=== PATIENT | male | born 1995 | race Caucasian/White ===

== ENCOUNTER 2019-07-21 13:00 | Inpatient (IN) | payer OTHER, BC ==
--- NOTE | 2019-07-21 13:33 | ED ---
Psychiatric Complaint - HPI Summary HPI Summary: This pt is a 24 Y/O M presenting to [facility] with a CC of suicidal and homicidal ideations. He states that he has been very depressed recently due to family issues and the feeling that his friends don't want him around. He states that he has not been eating consistently or sleeping consistently. He states that he is afraid that he might hurt someone or himself. He has thought about the possibility of suicide but states that he does not have any real plan. He denies any N/V, fevers, SOB, chills, abdominal pain, sore throat, and headache. He has no alleviating symptoms. He has a PMHx of psychiatric issues. - History Of Current Complaint Chief Complaint: EDMentalHealth Time Seen by Provider: 07/21/19 13:13 Hx Obtained From: Patient Onset/Duration: Sudden Onset, Still Present Timing: Constant Severity Initially: Moderate Severity Currently: Severe Character: Depressed Aggravating Factor(s): Recent Stress - family issues, friendship issues Alleviating Factor(s): Nothing Associated Signs And Symptoms: Positive: Sleep Disturbance, Appetite Change Related History: Positive For: Prior Psychiatric Issues Has Suicidal: Reports: Thoughts. Denies: With A Plan Has Homicidal: Reports: Thoughts Recent Stressor(s): family and friend issues - Allergies/Home Medications Allergies/Adverse Reactions: Allergies Allergy/AdvReac Type Severity Reaction Status Date / Time No Known Allergies Allergy Verified 07/21/19 14:02 Home Medications: Home Medications Sertraline* [Zoloft*] 50 mg PO DAILY 07/21/19 [History Confirmed 07/21/19] PMH/Surg Hx/FS Hx/Imm Hx Previously Healthy: Yes Infectious Disease History: No Infectious Disease History: Denies: Traveled Outside the [place] in Last 30 Days - Family History Known Family History: Negative: Diabetes - Social History Alcohol Use: Occasionally Hx Substance Use: No Substance Use Type: Reports: None Hx Tobacco Use: No Smoking Status (MU): Never Smoked Tobacco Review of Systems Negative: Fever, Chills Negative: Sore Throat Negative: Shortness Of Breath Negative: Abdominal Pain, Vomiting, Nausea Negative: Headache Psychological: Other - POSITIVE: HI and SI Positive: Depressed All Other Systems Reviewed And Are Negative: Yes Physical Exam - Summary Physical Exam Summary: Appearance: The patient is well-nourished in no acute distress and in no acute pain. Skin: The skin is warm and dry and skin color reflects adequate perfusion. HEENT: The head is normocephalic and atraumatic. The pupils are equal and reactive. The conjunctivae are clear and without drainage. Nares are patent and without drainage. Mouth reveals moist mucous membranes and the throat is without erythema and exudate. The external ears are intact. The ear canals are patent and without drainage. The tympanic membranes are intact. Neck: The neck is supple with full range of motion and non-tender. There are no carotid bruits. There is no neck vein distension. Respiratory: Chest is non-tender. Lungs are clear to auscultation and breath sounds are symmetrical and equal. Cardiovascular: Heart is regular rate and rhythm. There is no murmur or rub auscultated. There is no peripheral edema and pulses are symmetrical and equal. Abdomen: The abdomen is soft and non-tender. There are normal bowel sounds heard in all four quadrants and there is no organomegaly palpated. Musculoskeletal: There is no back tenderness noted. Extremities are non-tender with full range of motion. There is good capillary refill. There is no peripheral edema or calf tenderness elicited. Neurological: Patient is alert and oriented to person, place and time. The patient has symmetrical motor strength in all four extremities. Cranial nerves are grossly intact. Deep tendon reflexes are symmetrical and equal in all four extremities. Psychiatric: The patient has an appropriate affect and does not exhibit any anxiety or depression. Triage Information Reviewed: Yes Vital Signs On Initial Exam: Initial Vitals Temp Pulse Resp BP Pulse Ox 99.1 F 80 18 135/110 98 07/21/19 13:04 07/21/19 13:04 07/21/19 13:04 07/21/19 13:04 07/21/19 13:04 Vital Signs Reviewed: Yes Diagnostics - Vital Signs Vital Signs Temp Pulse Resp BP Pulse Ox 07/21/19 13:04 99.1 F 80 18 135/110 98 - Laboratory Result Diagrams: 07/21/19 13:32 07/21/19 13:29 Lab Statement: Any lab studies that have been ordered have been reviewed, and results considered in the medical decision making process. Course/Dx - Course Course Of Treatment: Mr. Cox was medically cleared in the emergency department and is undergoing a mental health evaluation. - Differential Dx/Clinical Impression Provider Diagnosis: Depression Discharge ED - Sign-Out/Discharge Documenting (check all that apply): Sign-Out Patient Signing out patient TO: Kenroycar Alicja Bushland Patient Received Moderate/Deep Sedation with Procedure: No - Discharge Plan Referrals: Kandace Adams MD [Primary Care Provider] - - Attestation Statements Document Initiated by Rocioibe: Yes Documenting Scribe: George Scott Provider For Whom Scribe is Documenting (Include Credential): Carson Negrete MD Scribe Attestation: George Santiago, scribed for Carson Negrete MD on 07/21/19 at 1947. Scribe Documentation Reviewed: Yes Provider Attestation: The documentation as recorded by the George barlow accurately reflects the service I personally performed and the decisions made by , Carson Negrete MD Status of Scribe Document: Viewed
[2019-07-21 13:44] LABS: ABS Basophils 0.1 10^3/ul (0-0.2); ABS Eosinophils 1.4 10^3/ul (0-0.6); ABS Lymphocytes 2.1 10^3/ul (1.0-4.8); ABS Monocytes 0.7 10^3/ul (0-0.8); Eosinophil % 17.4 %; Hematocrit 46 % (42-52); Hemoglobin 16.1 g/dL (14.0-18.0); Lymphocyte % 24.7 %; Mean Corpuscular HGB Conc 35 g/dL (31-36); Mean Corpuscular Hemoglobin 31 pg (27-31); Mean Corpuscular Volume 89 fL (80-94); Mean Platelet Volume 8.6 fL (7.4-10.4); Nucleated Red Blood Cells % 0.1; Platelet Count 307 10^3/uL (150-450); Red Blood Count 5.21 10^6 /uL (4.18-5.48); Red Cell Distribution Width 13 % (10-15); White Blood Count 8.3 10^3/uL (3.5-10.8)
[2019-07-21 13:59] LABS: ALT 19 U/L (7-52); Albumin/Globulin Ratio 2.1 (1-3); Alkaline Phosphatase 63 U/L (34-104); BUN/Creatinine Ratio 12.7 (8-20); Blood Urea Nitrogen 15 mg/dL (6-24); CO2 Carbon Dioxide 28 mmol/L (22-32); Calcium 9.8 mg/dL (8.6-10.3); Chloride 105 mmol/L (101-111); EGFR African American 91.8 (>60); EGFR Non-African American 75.8 (>60); Globulin 2.4 g/dL (2-4); Glucose 101 mg/dL (70-100); Sodium 140 mmol/L (135-145); Total Protein 7.4 g/dL (6.4-8.9)
[2019-07-21 14:01] LABS: Urine Benzodiazepine Screen None Detected (None Detect); Urine Opiates Screen None Detected (None Detect)
[2019-07-21 14:10] LABS: Urine Appearance Clear; Urine Bacteria Absent (Absent); Urine Bilirubin Negative (Negative); Urine Blood 1+ (Negative); Urine Color Yellow; Urine Glucose Negative (Negative); Urine Ketones Negative (Negative); Urine Nitrite Negative (Negative); Urine Protein Negative (Negative); Urine Red Blood Cell Absent (Absent); Urine Urobilinogen Negative (Negative); Urine White Blood Cell Trace(0-5/hpf) (Absent)
--- OUTSIDE RECORDS SUMMARY | 2019-07-21 14:16 | XMS REPORT | Continuity of Care Document ---
:1995 External Reference #:[id number] Author Name Kandace Adams MD Address [address] [place] [id number] Care Team Providers Name Role Phone [facility] Counseling - Counselor Care Team Information [facility] [employer] Care Team Information [employer] [phone] - Mental Health Problems Active Problems Provider Date Mental disorder Kandace Adams MD Onset: 04/22/2019 Social History Type Date Description Comments Sex Unknown ETOH Use Occasionally consumes alcohol Tobacco Use Start: Unknown Patient is a former End: Unknown smoker Recreational Drug Use Current Drug User Marijuana Smoking Status Reviewed: 12/21/18 Patient is a former smoker Exercise Type/Frequency Exercises sporadically 03/14/16 counselled 150min per week ,10k steps per day [facility] Allergies, Adverse Reactions, Alerts Description No Known Drug Allergies Medications Active Medications SIG Qnty Indications Ordering Provider Date Sertraline HCL 1/2 by mouth 30tabs F43.21 Kandace Adams, 06/03/2019 50mg every day for MD Tablets one week then 1 daily Vitamin B-12 take one tablet 30tabs E53.9 Kandace Adams, 03/15/2016 1000mcg by mouth every MD Tablets day with food Vitamin D3 1 by mouth daily E55.9 Kandace Adams, 03/15/2016 1000Unit with dinner with MD Tablets meat fat oil History Medications Ketoconazole apply cream to 15gm B35.4 Kandace Adams MD 12/20/2018 - 2% Cream rash daily for 01/03/2019 up to 2 weeks Immunizations CPT Code Status Date Vaccine Reaction Lot # [id number] Given 04/22/2019 Gardasil-9 (HPV) Nonavalent 2-3 [place] [id number] [address] Given 12/20/2018 Tdap (Adacel) Ages 7 And Above Only [id number] 71581 Given 12/20/2018 Gardasil-9 (HPV) Nonavalent 2-3 [place] [id number] [address] Given 03/06/2017 Gardasil-9 (HPV) Nonavalent 2-3 [place] [id number] [address] Given 06/29/2007 Tdap (Adacel) Ages 7 And Above Only 46999 Given 06/13/2000 IPV / Poliomyelitis Immunization 05105 Given 06/13/2000 MMR Virus Immunization 94095 Given 06/13/2000 DTaP Immunization 7 Yrs & Younger 22378 Given 02/21/2000 Varicella (Chicken Pox) Immunization 27226 Given 07/24/1996 DTaP Immunization 7 Yrs & Younger 76436 Given 02/05/1996 MMR Virus Immunization 21827 Given 1995 Hepatitis B Vac Ped/Adolescent 3 Dose Schedule 55625 Given 1995 Hib Pedvaxhib Vac 3 Dose Schedule 74877 Given 1995 DTaP Immunization 7 Yrs & Younger 76659 Given 1995 IPV / Poliomyelitis Immunization 65672 Given 1995 IPV / Poliomyelitis Immunization 90764 Given 1995 DTaP Immunization 7 Yrs & Younger 79136 Given 1995 Hib Pedvaxhib Vac 3 Dose Schedule 18774 Given 1995 Hepatitis B Vac Ped/Adolescent 3 Dose Schedule 67699 Given 1995 Hepatitis B Vac Ped/Adolescent 3 Dose Schedule 68029 Given 1995 IPV / Poliomyelitis Immunization 65569 Given 1995 DTaP Immunization 7 Yrs & Younger 21885 Given 1995 Hib Pedvaxhib Vac 3 Dose Schedule [id number] Refused 06/03/2019 Flu Vaccine NOS 15924 Refused 12/20/2018 Meningococcal B(Bexsero)protn is not in college/ does otrMembran Vesicle Vccn 2 dose not live in dorm - does sche not need men b 92563 Refused 12/20/2018 Influenza Vac, Quadrivalent, Split, 0.5mL Dosage, [place] Use [address]754 Refused 03/06/2017 Influenza Virus Vaccine,Quadrivalent,Split,Preserv Free, 0.5mL,Im [address] Refused 03/14/2016 Gardasil-9 (HPV) [place]alent 2-[place] [address] Refused 03/14/2016 Influenza Virus Vaccine,Quadrivalent,Split,Preserv Free, 0.5mL,Im Vital Signs Date Vital Result Comment 06/03/2019 10:34am Weight 160.00 lb Heart Rate 74 /min BP Systolic 126 mmHg BP Diastolic 82 mmHg Respiratory Rate 14 /min Height 67.25 inches 5'7.25" BMI (Body Mass Index) 24.9 kg/m2 04/22/2019 4:28pm Weight 162.00 lb Heart Rate 70 /min BP Systolic 126 mmHg BP Diastolic 80 mmHg Respiratory Rate 16 /min Height 67.25 inches 5'7.25" BMI (Body Mass Index) 25.2 kg/m2 Results Test Date Facility Test Result H/L Range Note HIV Combo By 12/20/2018 [facility] [employer] HIV NON REACTIVE Non Reactive 1 [facility] Combo CBC with Auto 12/20/2018 [facility] WBC 6.6 K/uL 4.1-11.0 Diff-fcmg RBC 4.84 M/uL 4.60-6.10 Hemoglobin 14.8 gm/dL 13.5-18.0 Hematocrit 43.0 % 41.0-53.0 MCV 88.8 fL 80.0-97.0 MCH 30.7 pg 27.0-32.0 MCHC 34.5 g/dL 32.0-36.0 RDW 12.6 % 11.5-14.5 PLT Count 275 K/ul 140-400 MPV 8.7 FL 7.1-10.7 Neutrophil 45.7 % 35.0-75.0 Lymphocyte 30.0 % 16.0-52.0 Monocyte 8.5 % 2.0-10.0 Eosinophil 14.4 % High 0.0-5.0 Basophil 1.4 % 0.0-4.0 Abs Neutrophils 3.0 K/uL 2.1-8.0 Abs Lymphocytes 2.0 K/uL 0.8-5.5 Abs Monocytes 0.6 K/uL 0.1-1.0 Abs Eosinophils 1.0 K/uL High 0.0-0.5 Abs Basophils 0.1 K/uL 0.0-0.3 Comprehensive Met Panel-[facility] 12/20/2018 [facility] Sodium 143 mmol/L 135- 146 2 Potassium 4.5 mmol/L 3.5-5.2 Chloride# 107 mmol/L 97-110 3 Carbon Dioxide 28 mmol/L 24-34 Glucose 108 mg/dL High 70-105 BUN 16 mg/dL 6-26 Creatinine 1.0 mg/dL 0.5-1.4 Calcium 10.0 mg/dL 8.5-10.2 Total Protein 6.7 g/dL 6.0-8.0 Albumin 4.7 g/dL 3.6-4.9 Globulin 2.0 g/dL 2.0-3.5 A/G Ratio 2.4 Ratio High 1.0-2.2 Total Bilirubin 0.3 mg/dL 0.1-1.3 Alkaline Phosphatase 62 U/L 24-140 Alt 29 U/L 3-42 Ast 25 U/L 8-42 Anion Gap 8 mmol/L 5-15 4 Luisana Egfr >60 >60 5 Non Luisana Egfr >60 >60 6 Laboratory test finding 12/20/2018 [facility] Gamma gt 54 U/L (15-95) 7 1 anytime now 2 Updated reference range on new analyzer -2016 3 Updated reference range on new analyzer 4 Updated Reference Range 5 Concerning GFR Guidelines for Americans: Normal function or mild renal disease, if clinically at risk: >/= 60 mL/min Moderately decreased: 30-59 Severely decreased: 15-29 Renal failure: <15 6 Concerning GFR Guidelines: Normal function or mild renal disease, if clinically at risk: >/= 60 mL/min Moderately decreased: 30-59 Severely decreased: 15-29 Renal failure: <15 Glomerular Filtration Rate (GFR) is estimated based on the MDRD equation, which assumes a steady state for creatinine as recommended by the National Kidney Disease Education Program in conjunction with the National Institutes of Health and the National Kidney Foundation. Clinical conditions in which it may be necessary to measure GFR by using clearance methods include extremes of age and body size, severe malnutrition or obesity, diseases of skeletal muscle, paraplegia or quadriplegia, vegetarian diet, rapidly changing kidney function, and calculation of the dose of potentially toxic drugs that are excreted by the kidneys. 7 Unless otherwise specified, testing performed by [facility] [address] [place] [address] Procedures Date Code Description Status 06/03/2019 81089 Brief Emotional/Behav Assessment W/ Scoring Doc Per Completed Standard Inst 01/18/2019 37823 Brief Emotional/Behav Assessment W/ Scoring Doc Per Completed Standard Inst Medical Devices Description No Information Available Encounters Type Date Location Provider Dx Diagnosis Office Visit 04/22/2019 [facility] Kandace Adams, F43.21 Adjustment disorder 4:15p MD with depressed mood Z23 Encounter for immunization F10.288 Alcohol dependence with other alcohol-induced disorder F12.29 Cannabis dependence with unsp cannabis-induced disorder F17.211 Nicotine dependence, cigarettes, in remission Z81.8 Family history of other mental and behavioral disorders Z68.25 Body mass index (BMI) 25.0-25.9, adult Office Visit 01/18/2019 2:45p [facility] Kandace Adams MD F43.21 Adjustment disorder with depressed mood G47.9 Sleep disorder, unspecified F10.288 Alcohol dependence with other alcohol-induced disorder F12.29 Cannabis dependence with unsp cannabis-induced disorder F17.211 Nicotine dependence, cigarettes, in remission Z68.26 Body mass index (BMI) 26.0-26.9, adult Office Visit 12/20/2018 9:00a [facility] Kandace Adams MD Z00.01 Encounter for general adult medical exam w abnormal findings Z23 Encounter for immunization F43.21 Adjustment disorder with depressed mood G47.9 Sleep disorder, unspecified Z11.4 Encounter for screening for human immunodeficiency virus B35.4 Tinea corporis F12.29 Cannabis dependence with unsp cannabis-induced disorder F17.211 Nicotine dependence, cigarettes, in remission F10.288 Alcohol dependence with other alcohol-induced disorder Assessments Date Code Description Provider 06/03/2019 F43.21 Adjustment disorder with depressed mood Kandace Adams MD 06/03/2019 F10.288 Alcohol dependence with other alcohol-induced Kandace Adams MD disorder 06/03/2019 F12.29 Cannabis dependence with unspecified Kandace Adams MD cannabis-induced disord 06/03/2019 F17.211 Nicotine dependence, cigarettes, in remission Kandace Adams MD 04/22/2019 F43.21 Adjustment disorder with depressed mood Kandace Adams MD 04/22/2019 Z23 Encounter for immunization Kandace Adams MD 04/22/2019 F10.288 Alcohol dependence with other alcohol-induced Kandace Adams MD disorder 04/22/2019 F12.29 Cannabis dependence with unspecified Kandace Adams MD cannabis-induced disord 04/22/2019 F17.211 Nicotine dependence, cigarettes, in remission Kandace Adams MD 04/22/2019 Z81.8 Family history of other mental and behavioral Kandace Adams MD disorders 04/22/2019 Z68.25 Body mass index (BMI) 25.0-25.9, adult Kandace Adams MD 01/18/2019 F43.21 Adjustment disorder with depressed mood Kandace Adams MD 01/18/2019 G47.9 Sleep disorder, unspecified Kandace Adams MD 01/18/2019 F10.288 Alcohol dependence with other alcohol-induced Kandace Adams MD disorder 01/18/2019 F12.29 Cannabis dependence with unspecified Kandace Adams MD cannabis-induced disord 01/18/2019 F17.211 Nicotine dependence, cigarettes, in remission Kandace Adams MD 01/18/2019 Z68.26 Body mass index (BMI) 26.0-26.9, adult Kandace Adams MD 12/20/2018 F10.288 Alcohol dependence with other alcohol-induced Kandace Adams MD disorder 12/20/2018 Z00.01 Encounter for general adult medical Kandace Adams MD examination with abnorma 12/20/2018 Z11.4 Encounter for screening for human Kandace Adams MD immunodeficiency virus [HIV] 12/20/2018 Z23 Encounter for immunization Kandace Adams MD 12/20/2018 F43.21 Adjustment disorder with depressed mood Kandace Adams MD 12/20/2018 G47.9 Sleep disorder, unspecified Kandace Adams MD 12/20/2018 Z11.4 Encounter for screening for human Kandace Adams MD immunodeficiency virus [Hi 12/20/2018 B35.4 Tinea corporis Kandace Adams MD 12/20/2018 F12.29 Cannabis dependence with unspecified Kandace Aadms MD cannabis-induced disord 12/20/2018 F17.211 Nicotine dependence, cigarettes, in remission Kandace Adams MD 12/20/2018 F10.288 Alcohol dependence with other alcohol-induced Kandace Adams MD disorder 12/20/2018 F10.288 Alcohol dependence with other alcohol-induced Schedule, Laboratory disorder 12/20/2018 Z11.4 Encounter for screening for human Schedule, Laboratory immunodeficiency virus 12/20/2018 Z11.4 Encounter for screening for human [facility] immunodeficiency virus 12/20/2018 F10.288 Alcohol dependence with other alcohol-induced [facility] disorder Plan of Treatment Future Appointment(s):07/03/2019 1:00 pm - Kandace Adams MD at [facility]2018 - Kandace Adams MDF43.21 Adjustment disorder with depressed moodNew Medication:Sertraline HCL 50 mg - 1/2 by mouth every day for one week then 1 dailyComments:he is working, trying to figure out what he wants to do in life; sleep issues , if addresses may help mood improvehe needs to return to counselling as he did better when in counselling. he will see if he can do telephone counselling. phq9 = 9 better, wants to try meds. recommend attention to healthy lifestyle, diet, exercise, hydration, routine sleep and engage in activities discussedif sxs worsen, interfere with ability to deal with responsibilities, then seek evaluation and additional treatment is recommended Consider: buspirone, bupropion, escitalopram, sertraline start sertraline 25mg daily for one week, then 50mg daily cautioned side effects, wtach for stomach , ED, call for concerns. I'm uncertain about interactions with marijuana , vaping, alcohol given your use, cautioned sedation. Let me know if you get mood changes you don't feel are appropriate, rare risks for increased suicidal thoughts.Follow up:next visit in 25 to 35 days, fu adj disorder, phq9 , new medsF10.288 Alcohol dependence with other alcohol-induced disorderComments: alcohol use great job with cutting back!sleep issues discussed, let me know if needs more [id number] Cannabis dependence with unspecified cannabis- induced disordComments:Cautioned the moth exterminator risks of use Marijuana moth exterminator use for depression, anxiety , muscle weakness, cardiomyopathy, and other effects. Recommend complete cessation. recommend to address with counsellor.F17.211 Nicotine dependence, cigarettes, in remissionComments:great job not smoking cigaretteshe will continue to taper off the vaping. Functional Status Description No Information Available Mental Status Description No Information Available Referrals Refer to Reason for Referral Status Appt Date [facility] 23 yo with mood and sleep issues, Closed 01/16 Clinic see notes. Cognitive and behavioral counselling for sleep would be helpful as well as addressing mood i called and spoke with patient he said he did not schedule an appt yet 3/5am i called and spoke with partient and he gave me the time and date of appt 15am [address] [id number] [phone]
[2019-07-21 14:19] LABS: Acetaminophen < 15 mcg/mL; Alcohol < 10 mg/dL (<10); Salicylate < 2.50 mg/dL (<30)
[2019-07-21 14:35] LABS: Anion Gap 7 mmol/L (2-11); Potassium 4.4 mmol/L (3.5-5.0); TSH (Thyroid Stimulating Horm) 1.58 mcIU/mL (0.34-5.60)
[2019-07-21 14:40] LABS: AST 21 U/L (13-39)
--- NOTE | 2019-07-21 20:51 | ED ---
Progress - Progress Note Progress Note: 24-year-old male presents with suicidal ideation and setting of substance use. Signed out pending mental health evaluation - Consult/PCP Time Called: 18:41 Course/Dx - Course Course Of Treatment: Mr. Cox was medically cleared in the emergency department and is undergoing a mental health evaluation. - Diagnoses Provider Diagnoses: Depression, Substance induced mood disorder - Provider Notifications Discussed Care Of Patient With: June Caicedo Time Discussed With Above Provider: 20:00 Instructed by Provider To: Admit As Inpatient Discharge ED - Sign-Out/Discharge Documenting (check all that apply): Patient Departure Patient Received Moderate/Deep Sedation with Procedure: No - Discharge Plan Condition: Stable Disposition: ADMITTED TO [facility] Referrals: Kandace Adams MD [Primary Care Provider] - - Billing Disposition and Condition Condition: STABLE Disposition: Admitted to [facility]
[2019-07-21] MEDS ORDERED: Al Hydrox/Mg Hydrox/Simet LIQ* 30 ML UDC PO PRN (21:42)
[2019-07-21] MEDS ORDERED: Acetaminophen TAB* 325 MG PO PRN (21:42)
[2019-07-22 06:40] LABS: HDL Cholesterol 52.9 mg/dL
[2019-07-22] MEDS ORDERED: Sertraline* 50 MG TAB PO SCH (09:00)
[2019-07-22] MEDS: Multivitamins/Minerals TAB PO SCH (10:20)
[2019-07-22] MEDS ORDERED: Sertraline* 50 MG TAB PO ONE (12:03)
--- NOTE | 2019-07-22 18:16 | HP ---
HISTORY AND PHYSICAL: DATE OF ADMISSION: 07/21/19 SUPERVISING PSYCHIATRIST: Dr. Matias Angelo.* (DICTATED BY ADDIE CABALLERO NP) JUSTIFICATION FOR ADMISSION: The patient presented to the emergency department with suicidal ideation and plans to jump off a bridge into traffic and also endorses passive wish. The patient merits hospitalization for immediate safety and stabilization. CHIEF COMPLAINT: "I was scared I was going to hurt myself." HISTORY OF PRESENT ILLNESS: Malick is a 24-year-old white male, single, never , without children, domiciled, employed. The patient reports worsening depressed mood for the past month. About that time, he went to his primary care provider and started sertraline. He states he often forgets to take this, but has moments of feeling better. He endorses depressed mood consistently, frustration, irritability. He reports feeling hopeless and helpless. He states he has intrusive thoughts of suicidal ideation. He reports brief periods of impulsive spending and decreased concentration. He denies change in appetite. He has a history of cutting in high school. Denies self-injurious behavior since then. He denies obsessions or compulsions. He reports mild body image dislike. Denies eating disorder behaviors. The patient reports that he has tried to go to therapy, but has difficulty making appointments because of long work days. He states he works with his father and that they rarely communicate beyond superficial conversation. He reports that his parents is a stressor in that this was unexpected. He also states that his mother was recently diagnosed with bipolar disorder. He states he has a tense relationship with his father. He denies a history of suicide attempts. The patient also reports that he is unsure about sexuality, but is unable to talk about this with anyone, especially in his family. He declines offer of testing for STIs. PAST PSYCHIATRIC HISTORY: The patient saw a therapist that he does not remember , he saw one in [place] and has been seen at [facility], last being in February. He denies prior psychiatric medication trials. TRAUMA/ABUSE HISTORY: Three years ago, his friend, Michel overdosed on heroin. His father was running in the [employer] during the bombing and they were all staying there. He denies a history of abuse. PAST MEDICAL HISTORY: Concussion x2 while playing soccer in high school. Sutures in his chin at 9 years old and an arm fracture at 12 years old. PAST SURGICAL HISTORY: None. CURRENT MEDICATIONS: Sertraline 50 mg p.o. at bedtime. ALLERGIES: No known allergies. Height 5 feet 9 inches, weight 165 pounds. FAMILY PSYCHIATRIC HISTORY: Mom recently diagnosed with bipolar disorder. SOCIAL HISTORY: The patient graduated high school from [employer]. He states that he went to [employer] on and off for 3 years and majored in Tern engineering, but was unable to complete a degree. 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 He identifies that he drinks "a lot of coffee every day." He denies any legal or history. He reports liking been involved in kickITCing for exercise when time allows. SUBSTANCE USE HISTORY: The patient reports trying marijuana at age 16 and then at age 18 he started using it more frequently. He reports smoking daily 1 gram or 2. He reports occasional cocaine use, but rare, last starting when he was 20 and last use being on Monday. He reports trying mushrooms ones. Alcohol use started at age 18. He reports this is primarily social. He binge drinks on weekends and has a beer or 2 after work. His last alcohol was on Monday. REVIEW OF SYSTEMS: Constitutional: Negative. No fever, chills, or fatigue. ENT: Negative. Cardiovascular: Negative. Denies chest pain or palpitations. Respiratory: Negative. Denies shortness of breath or cough. Genitourinary: Negative. Musculoskeletal: Negative. Neurological: Negative. PHYSICAL EXAMINATION GENERAL: The patient is well appearing and well nourished. VITAL SIGNS: T 97.7, P 69, RR 14, O2 sat 100%, BP 131/87. HEENT: Head is normocephalic and atraumatic. Pupils are equal and reactive. Conjunctivae are clear without drainage. Nares are patent without drainage. Mouth reveals moist mucous membranes and throat is without erythema and exudate. External ears are intact. Ear canals are patent and without drainage. Tympanic membranes intact. NECK: Supple with full ROM, nontender. RESPIRATORY: Chest is nontender. Lung sounds clear to auscultation. Breath sounds symmetrical and equal. CARDIOVASCULAR: Heart RRR. No peripheral edema. Pulses are symmetrical and equal in both upper and lower extremities. ABDOMEN: Soft and nontender. Bowel sounds x4. MUSCULOSKELETAL: Normal strength. ROM intact. Good capillary refill. NEUROLOGICAL: Normal sensory and motor intact. Cerebellar function intact. Cranial nerves are grossly intact. SKIN: Warm, dry. Color reflects adequate perfusion. DIAGNOSTIC STUDIES/LAB DATA: CBC grossly unremarkable. Chemistry within normal limits. Hemoglobin A1c 5.6. Lipid panel within normal limits. TSH normal at 1.58. Urinalysis; 1+ blood, micro negative. Toxicology negative for salicylates, acetaminophen, or alcohol. Urine drug screen is positive for cocaine and cannabinoids. MENTAL STATUS EXAM: The patient is a 24-year-old white male who appears stated age. He has long dark hair, pulled back into a ponytail and has dark framed spectacles. He sits with erect posture and is cooperative with interview. He appears to be a good historian. He answers questions slowly. The patient is alert and oriented x3. Eye contact is good. Speech is soft, articulate, and spontaneous. Concentration is good. Memory 3/3. Mood is dysphoric with full range of affect. No abnormal psychomotor activity noted. Thought process is circumstantial, logical and coherent. Thought content is positive for SI and passive wish. He denies HI or . He denies auditory or visual hallucinations. Insight and judgment are good in that he was willing to be hospitalized on a voluntary basis. Fund of knowledge is adequate. He appears to have average intellect by virtue of vocabulary and educational attainment. DIAGNOSES: 1. Major depressive disorder, moderate, severe, without psychotic features. 2. Unspecified anxiety disorder. 3. Rule out substance-induced mood disorder. 4. Cannabis use disorder. 5. Cocaine use disorder. ASSESSMENT: Malick is a 24-year-old white male with no prior psychiatric hospitalizations known, who presented to the ED due to thoughts of suicide and a plan to jump into traffic. He reports onset of depressed mood for quite some time, worsened in the past month. He went to his primary care provider and started sertraline 50 mg about 1 month ago. He states he has been inconsistently taking this. He reports poor communication with his dad and parents with mom newly diagnosed with bipolar disorder. He reports smoking cannabis daily and occasionally using cocaine and alcohol. PLAN: The patient is admitted to adult behavioral services unit on voluntary status. Code status is full. He is placed on 15-minute checks for his safety. He is encouraged to participate in supportive milieu, individual sessions with staff, and psychoeducational groups. We will obtain an MMPI for diagnostic clarification. The patient agreed to increase sertraline and I will add clonidine p.r.n. for anxiety. Estimated length of stay is 5 to 7 days. Discharge planning will include family and outpatient providers. ADDIE CABALLERO, SANTIAG[place] [id number]/CPS #: [id number] JM
[2019-07-22] MEDS: cloNIDine TAB* 0.1 MG PO SCH (20:24)
[2019-07-23 08:18] VITALS: BP 125/71
[2019-07-23] MEDS: Multivitamins/Minerals TAB PO SCH (08:52)
[2019-07-23] MEDS: cloNIDine TAB* 0.1 MG PO SCH (08:52)
[2019-07-23] MEDS: Sertraline* 50 MG TAB PO SCH (08:52)
[2019-07-23] MEDS ORDERED: cloNIDine TAB* 0.1 MG PO PRN (11:54)
--- NOTE | 2019-07-23 11:56 | PN ---
Subjective - Subjective Date of Service: 07/23/19 Service Type: 18889 Hosp care 15 min low complexity Subjective: Patient reports improved anxiety. He reports benefitting from family members reaching out to him in support. He states he was especially surprised by his father doing so. They discussed potential job opportunities for Sravan so that they aren't working so closely. Sravan states he is benefitting from programming , as well. He was given a KWAKU packet and encouraged to use this to evaluate his substance use history. He agrees to discharge recommendation to have a CD evaluation after MH intake at [facility] [place]. Objective - General Observations Appearance: Well Groomed Stature: WNL Posture: WNL Eye Contact: Average Behavior/Activity: WNL - Interaction Observations Attitude Towards Examiner: Cooperative Stated Mood: Euthymic Affect: Full Speech Pattern/Tone: Clear, Appropriate, Normal Volume Thought Process: Coherent, Goal Directed Perception: WNL Thought Content: WNL Hallucination Type: None Delusion Type: None - Cognitive Function Orientation: A&O x 4 Level of Consciousness: Alert Cognition: WNL Estimated Intelligence: Normal Insight: WNL Judgment Within Normal Limits: Yes - Medication Compliance Cooperative with Inpatient Medication Regimen: Yes - Group Participation Participates in Group Activities: Yes Assessment - Assessment Merits Inpatient Hospitalization: For Immediate Safety, For Stabilization Inpatient DSM-V Dx: F33.1 Clinical Impression: First psychiatric hospitalization for 24yo swm without children, domiciled, employed, who presented to ED due to thoughts of suicide and a plan to jump from a bridge into traffic. He reports onset of depressed mood for quite some time, worsened approx a month ago. He went to his PCP and started sertraline 50mg one month ago and has been inconsistently taking this. He reports stressors of his parents and mother was recently diagnosed with bipolar d/o. He reports smoking cannabis daily, frequent alcohol use and occasionally cocaine use. He merits hospitalization for immediate safety and stabilization. Plan - Plan Treatment Plan: Name: CORRINA MELISSA Birthdate: 1995 [id number] continue acute intensive psychiatric treatment. may decrease to q30min obs and allow staff pass and computer use per RN discretion. change clonidine to prn dosing. continue other medications, as ordered. patient to complete KWAKU packet. discharge tentative 07/24/19, include family and outpatient providers. Continued Medication Management: Start Medication Medications: Current Medications Acetaminophen (Tylenol Tab*) 650 mg PO Q4H PRN PRN Reason: PAIN; OR TEMP >101 Al Hydrox/Mg Hydrox/Simethicone (Maalox Plus*) 30 ml PO Q4H PRN PRN Reason: INDIGESTION Clonidine HCl (Catapres Tab*) 0.1 mg PO BID [facility] Last Admin: 07/23/19 08:52 Dose: 0.1 mg Multivitamins/Minerals (Theragran/Minerals Tab*) 1 tab PO DAILY [facility] Last Admin: 07/23/19 08:52 Dose: 1 tab Sertraline HCl (Zoloft*) 100 mg PO DAILY [facility] Last Admin: 07/23/19 08:52 Dose: 100 mg - Discharge Plan Discharge Plan: Inpatient Hospitalization
[2019-07-24] MEDS: Multivitamins/Minerals TAB PO SCH (08:36)
[2019-07-24] MEDS: Sertraline* 50 MG TAB PO SCH (08:36)
--- NOTE | 2019-07-24 14:01 | DCNOTE ---
Subjective - Subjective Service Types: 09050 Hosp DC Day Mgmt simple under 30 min Discharge Date: 07/24/19 Subjective: Patient presents as euthymic with bright affect. He has been interactive and participatory on unit. He reports readiness for discharge and is agreeable to DC plan. He denies SI or passive wish. Objective - General Observations Appearance: Well Groomed Stature: WNL Posture: WNL Eye Contact: Average Behavior/Activity: WNL - Interaction Observations Attitude Towards Examiner: Cooperative Stated Mood: Euthymic Affect: Bright Speech Pattern/Tone: Clear, Appropriate, Normal Volume Thought Process: Coherent, Goal Directed Perception: WNL Thought Content: WNL Hallucination Type: None Delusion Type: None - Cognitive Function Orientation: A&O x 4 Level of Consciousness: Alert Cognition: WNL Estimated Intelligence: Normal Insight: WNL Judgment Within Normal Limits: Yes - Medication Compliance Cooperative with Inpatient Medication Regimen: Yes - Group Participation Participates in Group Activities: Yes DC Assessment - Assessment Clinical Impression: First psychiatric hospitalization for 24yo swm without children, domiciled, employed, who presented to ED due to thoughts of suicide and a plan to jump from a bridge into traffic. He reports onset of depressed mood for quite some time, worsened approx a month ago. He went to his PCP and started sertraline 50mg one month ago and has been inconsistently taking this. He reports stressors of his parents and mother was recently diagnosed with bipolar d/o. He reports smoking cannabis daily, frequent alcohol use and occasionally cocaine use. He has tolerated medication changes and reports improvement in mood and anxiety. He has stabilized in this structured setting and denies SI or passive wish. Merits Inpatient Hospitalization: No Clear for Discharge: Adequate Clinical Respons, Acceptable Safety Profile Inpatient DSM-V Dx: F33.1 Discharge Planning - Discharge Planning Discharge Plan: Outpatient Follow Up Outpatient Program: [facility] [place] Recommendations for Continuing Care: Medication Management, Psychotherapy, Substance Abuse Counseling, Primary Care Followup Medications: Current Medications Clonidine HCl (Catapres Tab*) 0.1 mg PO BID PRN PRN Reason: ANXIETY Sertraline HCl (Zoloft*) 100 mg PO DAILY [facility] Last Admin: 07/24/19 08:36 Dose: 100 mg Discharge Planning: Prescriptions provided for discharge [x] Yes [] No Follow up care details as per social work arrangements: [facility] [place] PCP- [facility] Patient response to discharge plan: [x] eager for discharge [x] agreeable with discharge plan [] ambivalent about discharge [] disagrees with discharge today
--- NOTE | 2019-07-25 22:53 | DS ---
CC: [facility]; Dr. Kandace Adams * DISCHARGE SUMMARY: DATE OF ADMISSION: 07/21/19 DATE OF DISCHARGE: 07/24/19 SUPERVISING PSYCHIATRIST: Dr. Matias Angelo.* (DICTATED BY ADDIE CABALLERO NP) DISCHARGE DIAGNOSES: Major depressive disorder, recurrent, mild; unspecified anxiety disorder; cannabis use disorder; rule out bipolar disorder. CONDITION AT THE TIME OF DISCHARGE: Improved. The patient presents with euthymic with bright affect. He has been interactive and participatory on the unit. He denies suicidal ideation. He denies passive wish. He reports readiness for discharge and is agreeable to discharge plan. The patient is discharged to home. MENTAL STATUS EXAMINATION: Malick is well groomed with erect stature and posture. He has good eye contact and his behavior is within normal limits. He is cooperative, answers questions fully. He is euthymic with bright affect. His speech is clear with appropriate normal volume. His thought process is coherent and goal directed. There are no perceptual disturbances noted. Thought content is negative for suicidal ideation, passive wish. He denies self-harm, HI, or . He is alert and oriented x3. He has good concentration and memory 3/3. Insight and judgment are good. Estimated intelligence is normal. Fund of knowledge is excellent. INSTRUCTIONS GIVEN TO THE PATIENT: A. Medications: 1. Clonidine 0.1 mg p.o. b.i.d. p.r.n. anxiety. 2. Sertraline 100 mg p.o. daily. B. Diet: Regular. C. Activity: Ambulation as tolerated. Tobacco cessation is not applicable. There are no pending labs or diagnostic studies. D. Followup care: [facility] and chemical dependency evaluation. E. Substance Use: As above, at [facility] [place] and there is not an FDA medication approval for cannabis use disorder. HOSPITAL COURSE: Part A. Reason for admission: The patient presented to the emergency department with suicidal ideation and plans to jump off a bridge into traffic and also endorses passive wish. Chief Complaint: "I was scared I was going to hurt myself." HPI: Malick is a 24-year-old white male, who is single, never , without children, domiciled, employed. The patient reports worsening depressed mood for the past month. About that time, he went to his primary care provider and started sertraline. He states he often forgets to take this, but has moments of feeling better. He endorses depressed mood consistently, frustration , and irritability. He reports feeling hopeless and helpless. He states he has intrusive thoughts of suicide. He reports brief periods of impulsive spending and decreased concentration. He denies change in appetite. He has a history of cutting in high school. He denies self-injurious behavior since then. He denies obsessions or compulsions. He reports mild body image dislike. He denies eating disorder behaviors. The patient reports that he has tried to go to therapy, but has difficulty making appointments because of long work days. He states he works with his father and that they rarely communicate beyond superficial conversation. He reports his parents as a stressor and that this was unexpected. He also states that his mother was recently diagnosed with bipolar disorder. He states he has a tense relationship with his father. He denies a history of suicide attempts. The patient also reports he is unsure about sexuality, but is unable to talk about this with anyone, especially in his family. He declines offer of testing for STIs. Part B: Psychiatric treatment rendered: The patient was admitted to the adult behavioral services unit on voluntary status. Code status was full. He was placed on 15-minute checks for safety. Laboratory Data: CBC grossly unremarkable. Chemistry is within normal limits. Hemoglobin A1c is 5.6. Lipid panel is within normal limits. TSH is normal at 1.58. Urinalysis: + blood, micro negative. Toxicology negative for salicylates, acetaminophen, or alcohol. Urine drug screen was positive for cocaine and cannabinoids. The patient agreed to increase sertraline and we trailed clonidine for anxiety. He reported improvement in anxiety and his blood pressure was initially elevated as high as 143/97. On the day prior to discharge, it was within normal limits at 125/71. The patient was drawn an MMPI for diagnostic clarification. This is yet to be scored by our psychologist. The patient was interactive with staff and peers. He attended programming and reported benefiting from the groups. He reported dry mouth, otherwise no untoward effects in the change in sertraline. He was decreased to every 30 minutes observation and allowed staff pass. Day prior to discharge, patient reported desire to remain hospitalized in order to fully benefit from programming. The following day, the patient was euthymic with bright affect and denied barriers to discharge. The patient also completed a [facility] packet, so that he could take a look at his substance abuse and identify problem areas. He received a health home referral for case management. He was also given information for LGBT resources in [place]. The patient's family visited and phoned while he was on the unit. He reported that these actions of support were comforting to him and he was surprised at support received from his father. He states that he and his father have talked about working in separate locations so as to improve the relationship. The patient was safe on all checks. He denied suicidal ideation. Due to obligation to treat in least restrictive setting, discharge was agreed upon by treatment team. The patient was discharged by nursing staff. ADDIE CABALLERO NP [id number]/CPS #: [id number] JM
== END 2019-07-24 14:20 | disposition home or self-care (01) | DRG 751 ==
LOC: ED 13:00 → BSU 20:04
PROVIDERS: ADMIT Psychiatry & Neurology Psychiatry; ATTEND Psychiatry & Neurology Psychiatry
DX: F33.2 Major depressive disorder, recurrent severe without psychotic features (principal); R45.851 Suicidal ideations; F41.9 Anxiety disorder, unspecified; F12.90 Cannabis use, unspecified, uncomplicated; F14.90 Cocaine use, unspecified, uncomplicated; Z72.89 Other problems related to lifestyle
CPT/HCPCS: 36415; 80053; 80061; 80307; 80320; 80329; 81003; 81015; 83036; 84443; 85025; 87086; 99222; 99231; 99284; A9270-GY; G0480